=== PATIENT | female | born 1990 | race Hispanic/Latino ===

== ENCOUNTER 2024-02-25 21:25 | Inpatient (IN) ==
[2024-02-25] MEDS ORDERED: IOPAMIDOL 100 ML BOTTLE IV ONE (21:26)
[2024-02-25 22:00] LABS: Basophils # (Auto) 0.04 K/mcL (0.00-0.30); Basophils % (Auto) 0.4 % (0.0-2.0); Eosinophils # (Auto) 0.58 K/mcL (0.00-0.70); Eosinophils % (Auto) 6.4 % (0.0-7.0); Hematocrit 39.9 % (34.1-44.9); Hemoglobin 13.3 g/dL (11.2-15.7); Lymphocytes # (Auto) 2.75 K/mcL (1.50-4.80); Lymphocytes % (Auto) 30.4 % (15.5-49.0); Mean Cell Volume 85.3 fL (80.0-100.0); Mean Corpuscular HGB Conc 33.3 g/dL (31.0-36.0); Mean Platelet Volume 9.6 fL (8.8-12.5); Monocytes # (Auto) 1.01 K/mcL (0.10-0.90); Monocytes % (Auto) 11.2 % (1.0-12.0); Neutrophils % (Auto) 51.4 % (38.0-78.0); Platelet Count 271 K/mcL (140-440); RBC 4.68 M/mcL (3.59-5.38); Red Cell Distribution Width 12.4 % (11.5-14.5); WBC 9.1 K/mcL (4.5-11.0)
[2024-02-25 22:45] LABS: ALT/SGPT 13 U/L (<40); AST/SGOT 21 U/L (<32); Albumin/Globulin Ratio 1.3 (1.0-2.3); Alkaline Phosphatase 80 U/L (39-117); Bilirubin,Total 0.2 mg/dL (0.1-1.0); Blood Urea Nitrogen 15 mg/dL (6-20); Calcium 9.4 mg/dL (8.6-10.4); Carbon Dioxide 23 mmol/L (22-30); Chloride 102 mmol/L (96-108); Globulin 3.2 gm/dL (2.2-3.7); Glomerular Filtration Rate 114; Glucose 91 mg/dL (70-105)
[2024-02-25] MEDS: VANCOMYCIN 1,000 MG in 0.9 % SODIUM CHLORIDE 250 ML IV ONE (23:05)
[2024-02-25] MEDS: cefTRIAXone 1 GM VIAL IV ONE (23:05)
[2024-02-26] MEDS: KETOROLAC 30 MG/ML VIAL IV ONE (00:15)
[2024-02-26] MEDS: diphenhydrAMINE 50 MG/ML VIAL IV ONE (00:16)
[2024-02-26] MEDS ORDERED: NICOTINE POLACRILEX 2 MG GUM CHEW/PARK PRN (02:47)
[2024-02-26] MEDS: NICOTINE 21 MG PATCH ONE (04:15)
[2024-02-26] MEDS: NICOTINE 14 MG PATCH TOPICAL SCH (04:15)
[2024-02-26] MEDS: NICOTINE 14 MG PATCH ONE (04:16)
[2024-02-26] MEDS ORDERED: VANCOMYCIN PER PHARMACY IV SCH (04:25)
[2024-02-26] MEDS ORDERED: CALCIUM CARBONATE 500 MG TAB.CHEW CHEWED PRN (04:25)
[2024-02-26] MEDS ORDERED: SENNOSIDES 1 TABLET PO PRN (04:25)
[2024-02-26] MEDS ORDERED: MAGNESIUM HYDROXIDE 30 ML ORAL.SUSP PO PRN (04:25)
[2024-02-26] MEDS ORDERED: ONDANSETRON 4 MG/2 ML VIAL IV PRN (04:25)
[2024-02-26] MEDS ORDERED: ACETAMINOPHEN 325 MG TABLET PO PRN (04:25)
[2024-02-26] MEDS: 0.9 % SODIUM CHLORIDE 10 ML SYRINGE IV SCH (05:47)
[2024-02-26] MEDS: LACTATED RINGERS 1,000 ML IV SCH (05:47)
[2024-02-26 07:07] LABS: ALT/SGPT 14 U/L (<40); AST/SGOT 15 U/L (<32); Albumin 3.7 gm/dL (3.2-5.2); Albumin/Globulin Ratio 1.5 (1.0-2.3); Alkaline Phosphatase 67 U/L (39-117); Bilirubin,Total 0.3 mg/dL (0.1-1.0); Blood Urea Nitrogen 14 mg/dL (6-20); Calcium 8.8 mg/dL (8.6-10.4); Carbon Dioxide 24 mmol/L (22-30); Chloride 104 mmol/L (96-108); Globulin 2.5 gm/dL (2.2-3.7); Glomerular Filtration Rate 114; Glucose 121 mg/dL (70-105)
[2024-02-26 07:26] LABS: Basophils # (Auto) 0.04 K/mcL (0.00-0.30); Basophils % (Auto) 0.6 % (0.0-2.0); Eosinophils # (Auto) 0.53 K/mcL (0.00-0.70); Eosinophils % (Auto) 8.3 % (0.0-7.0); Hematocrit 37.4 % (34.1-44.9); Hemoglobin 12.4 g/dL (11.2-15.7); Lymphocytes # (Auto) 1.99 K/mcL (1.50-4.80); Mean Cell Volume 85.8 fL (80.0-100.0); Mean Corpuscular HGB Conc 33.2 g/dL (31.0-36.0); Mean Platelet Volume 9.6 fL (8.8-12.5); Monocytes # (Auto) 0.61 K/mcL (0.10-0.90); Monocytes % (Auto) 9.5 % (1.0-12.0); Neutrophils % (Auto) 50.3 % (38.0-78.0); Platelet Count 246 K/mcL (140-440); RBC 4.36 M/mcL (3.59-5.38); Red Cell Distribution Width 12.5 % (11.5-14.5); WBC 6.4 K/mcL (4.5-11.0)
[2024-02-26] MEDS: VANCOMYCIN 1,000 MG in 0.9 % SODIUM CHLORIDE 250 ML IV SCH (08:28)
[2024-02-26] MEDS: ENOXAPARIN 40 MG/0.4 ML SYRINGE SQ SCH (08:36)
[2024-02-26] MEDS: DOCUSATE SODIUM 100 MG CAPSULE PO SCH (08:36)
[2024-02-26] MEDS ORDERED: BUPRENORPHINE/NALOXONE 4MG/1MG ORAL FILM SL PRN (09:00)
[2024-02-26] MEDS: LEVOFLOXACIN 750 MG/150 ML BAG IV SCH (10:08)
[2024-02-26] MEDS: BUPRENORPHINE/NALOXONE 4MG/1MG ORAL FILM SL PRN (12:21)
[2024-02-26] MEDS: KETOROLAC 30 MG/ML VIAL IV PRN (14:09)
[2024-02-27] MEDS: IBUPROFEN 600 MG TABLET PO PRN (05:15)
[2024-02-27 06:55] LABS: Basophils # (Auto) 0.06 K/mcL (0.00-0.30); Basophils % (Auto) 0.9 % (0.0-2.0); Eosinophils # (Auto) 0.59 K/mcL (0.00-0.70); Eosinophils % (Auto) 8.9 % (0.0-7.0); Hematocrit 39.4 % (34.1-44.9); Hemoglobin 12.3 g/dL (11.2-15.7); Lymphocytes # (Auto) 2.66 K/mcL (1.50-4.80); Lymphocytes % (Auto) 40.2 % (15.5-49.0); Mean Cell Volume 91.4 fL (80.0-100.0); Mean Corpuscular HGB Conc 31.2 g/dL (31.0-36.0); Mean Platelet Volume 9.6 fL (8.8-12.5); Monocytes # (Auto) 0.65 K/mcL (0.10-0.90); Monocytes % (Auto) 9.8 % (1.0-12.0); Platelet Count 239 K/mcL (140-440); RBC 4.31 M/mcL (3.59-5.38); Red Cell Distribution Width 12.6 % (11.5-14.5); WBC 6.6 K/mcL (4.5-11.0)
[2024-02-27 07:19] LABS: C-Reactive Protein 2.39 mg/dL (0.03-0.80)
[2024-02-27 07:38] LABS: ALT/SGPT 8 U/L (<40); AST/SGOT 16 U/L (<32); Albumin 3.5 gm/dL (3.2-5.2); Albumin/Globulin Ratio 1.4 (1.0-2.3); Alkaline Phosphatase 64 U/L (39-117); Bilirubin,Total 0.2 mg/dL (0.1-1.0); Blood Urea Nitrogen 12 mg/dL (6-20); Calcium 8.5 mg/dL (8.6-10.4); Carbon Dioxide 21 mmol/L (22-30); Chloride 106 mmol/L (96-108); Globulin 2.5 gm/dL (2.2-3.7); Glomerular Filtration Rate 120; Glucose 97 mg/dL (70-105)
[2024-02-27] MEDS ORDERED: VANCOMYCIN 1,250 MG in 0.9 % SODIUM CHLORIDE 250 ML IV SCH (19:00)
[2024-02-27] MEDS: VANCOMYCIN 1,250 MG in 0.9 % SODIUM CHLORIDE 500 ML IV SCH (19:22)
[2024-02-27] MEDS: CLOTRIMAZOLE CRM 1% 1 DOSE TUBE TOPICAL SCH (20:21)
[2024-02-27] MEDS ORDERED: CLOTRIMAZOLE/BETAMETHASONE DIP 45 GM CREAM..G. TP SCH (21:00)
[2024-02-28 06:49] LABS: Basophils # (Auto) 0.05 K/mcL (0.00-0.30); Basophils % (Auto) 0.7 % (0.0-2.0); Eosinophils # (Auto) 0.72 K/mcL (0.00-0.70); Eosinophils % (Auto) 10.7 % (0.0-7.0); Hematocrit 38.9 % (34.1-44.9); Hemoglobin 12.4 g/dL (11.2-15.7); Lymphocytes # (Auto) 2.63 K/mcL (1.50-4.80); Mean Cell Volume 88.8 fL (80.0-100.0); Mean Corpuscular HGB Conc 31.9 g/dL (31.0-36.0); Mean Platelet Volume 9.8 fL (8.8-12.5); Monocytes # (Auto) 0.66 K/mcL (0.10-0.90); Monocytes % (Auto) 9.8 % (1.0-12.0); Neutrophils % (Auto) 39.5 % (38.0-78.0); Platelet Count 258 K/mcL (140-440); RBC 4.38 M/mcL (3.59-5.38); Red Cell Distribution Width 12.3 % (11.5-14.5); WBC 6.7 K/mcL (4.5-11.0)
[2024-02-28 07:14] LABS: ALT/SGPT 8 U/L (<40); AST/SGOT 15 U/L (<32); Albumin 3.6 gm/dL (3.2-5.2); Albumin/Globulin Ratio 1.4 (1.0-2.3); Alkaline Phosphatase 71 U/L (39-117); Bilirubin,Total < 0.2 mg/dL (0.1-1.0); Blood Urea Nitrogen 11 mg/dL (6-20); C-Reactive Protein 1.31 mg/dL (0.03-0.80); Carbon Dioxide 22 mmol/L (22-30); Chloride 107 mmol/L (96-108); Globulin 2.5 gm/dL (2.2-3.7); Glomerular Filtration Rate 120; Glucose 98 mg/dL (70-105)
[2024-02-28] MEDS: NICOTINE 21 MG PATCH TOPICAL SCH (09:28)
[2024-02-28] MEDS: LINEZOLID 600 MG/300 ML BAG IV SCH (09:28)
[2024-02-29 06:29] LABS: Basophils # (Auto) 0.05 K/mcL (0.00-0.30); Basophils % (Auto) 0.9 % (0.0-2.0); Eosinophils # (Auto) 0.68 K/mcL (0.00-0.70); Hematocrit 37.7 % (34.1-44.9); Hemoglobin 12.8 g/dL (11.2-15.7); Lymphocytes # (Auto) 1.77 K/mcL (1.50-4.80); Lymphocytes % (Auto) 31.2 % (15.5-49.0); Mean Cell Volume 85.1 fL (80.0-100.0); Mean Platelet Volume 9.7 fL (8.8-12.5); Monocytes # (Auto) 0.55 K/mcL (0.10-0.90); Monocytes % (Auto) 9.7 % (1.0-12.0); Platelet Count 269 K/mcL (140-440); RBC 4.43 M/mcL (3.59-5.38); Red Cell Distribution Width 12.3 % (11.5-14.5); WBC 5.7 K/mcL (4.5-11.0)
[2024-02-29 06:45] LABS: ALT/SGPT 16 U/L (<40); AST/SGOT 15 U/L (<32); Albumin 3.5 gm/dL (3.2-5.2); Albumin/Globulin Ratio 1.4 (1.0-2.3); Alkaline Phosphatase 62 U/L (39-117); Bilirubin,Total 0.2 mg/dL (0.1-1.0); Blood Urea Nitrogen 11 mg/dL (6-20); C-Reactive Protein 0.78 mg/dL (0.03-0.80); Calcium 9.1 mg/dL (8.6-10.4); Carbon Dioxide 23 mmol/L (22-30); Chloride 105 mmol/L (96-108); Globulin 2.5 gm/dL (2.2-3.7); Glomerular Filtration Rate 114; Glucose 97 mg/dL (70-105)
[2024-02-29] MEDS: LINEZOLID 600 MG TABLET PO SCH (08:16)
[2024-02-29] MEDS: LEVOFLOXACIN 750 MG TABLET PO SCH (08:16)
== END 2024-02-29 13:05 | disposition home or self-care (01) | DRG 603 ==
LOC: ED 21:25 → MEDSUR 02-26 04:17 → UNDODISIN 02-26 14:45
PROVIDERS: ADMIT Student in an Organized Health Care Education/Training Program; ATTEND Student in an Organized Health Care Education/Training Program